=== PATIENT | male | born 1970 | race Caucasian/White ===

== ENCOUNTER 2020-12-09 19:29 | Inpatient (IN) | payer OTHER ==
[~2020-12-09] VITALS: Ht 182.9 cm; Wt 82.0 kg
[2020-12-09 20:23] VITALS: Ht 182.9 cm; Wt 82.0 kg
[2020-12-09 20:34] LABS: BASOPHIL % 0.5 % (0.2-1.5)
[2020-12-09 21:00] LABS: PLATELET COUNT 466 x10^3mcL (152-348); RED CELL DISTRIBUTION WIDTH 15.4 % (12.1-16.2)
[2020-12-10] VITALS (8 sets, daily range): BP systolic 70–141; BP diastolic 44–104
[2020-12-10] MEDS ORDERED: ZESTORETIC1 TA1 PO (01:13)
[2020-12-10] MEDS ORDERED: JARDIANCE25 MG PO (01:14)
[2020-12-10] MEDS ORDERED: ASPIRIN CHILDRE81 MG PO (01:15)
[2020-12-10] MEDS ORDERED: NIACOR500 MG PO (01:15)
[2020-12-10] MEDS ORDERED: FENOFIBRATE MIC43 MG PO (01:15)
[2020-12-10] MEDS ORDERED: TOPROL XL50 MG PO (01:16)
[2020-12-10] MEDS ORDERED: PAXIL20 M1 PO (01:16)
[2020-12-10] MEDS ORDERED: XYOSTED100 MG/0.5 SQ (01:18)
[2020-12-10] MEDS ORDERED: VITAMIN D21250 MCG PO (01:18)
[2020-12-10 09:36] LABS: PLATELET COUNT 302 x10^3mcL (152-348)
[2020-12-10 09:37] LABS: RED CELL DISTRIBUTION WIDTH 15.9 % (12.1-16.2)
[2020-12-10 10:11] LABS: CARBON DIOXIDE 18.5 mmol/L (21-32); CHLORIDE SERUM 98 mmol/L (98-107); MAGNESIUM 1.5 mg/dL (1.8-2.4); SODIUM SERUM 131 mmol/L (136-145)
[2020-12-10 10:29] LABS: GFR1 16 mL/min
[2020-12-10 10:33] LABS: CREATININE SERUM 4.2 mg/dL (0.7-1.3); GLUCOSE SERUM 576 mg/dL (74-106); PHOSPHOROUS 0.9 mg/dL (2.5-4.9)
[2020-12-10 10:34] LABS: POTASSIUM SERUM 4.5 mmol/L (3.5-5.1)
[2020-12-10 11:34] LABS: CHOLESTEROL 243 mg/dL (<200); CHOLESTEROL/HDL RATIO 15.2; HDL CHOLESTEROL 16 mg/dL (40-60); TRIGLYCERIDES 1684 mg/dL (<150)
[2020-12-10 12:06] LABS: BAND NEUTROPHIL 2 % (0-10); MONOCYTE 7 % (0-7); PLATELET MORPHOLOGY PLATELETS NORMAL; SEGMENTED NEUTROPHILS 84 % (37-75); rbc morphology (normal/abnorm) NORMAL (NORMAL)
[2020-12-10 12:57] LABS: CK-MB 5.6 ng/mL (0-3.6)
[2020-12-10 17:40] LABS: CARBON DIOXIDE 20.4 mmol/L (21-32); CHLORIDE SERUM 98 mmol/L (98-107); GLUCOSE SERUM 445 mg/dL (74-106); PHOSPHOROUS 2.8 mg/dL (2.5-4.9); POTASSIUM SERUM 3.9 mmol/L (3.5-5.1); SODIUM SERUM 132 mmol/L (136-145)
[2020-12-10 17:46] LABS: GFR1 12 mL/min
[2020-12-10 17:47] LABS: CREATININE SERUM 5.3 mg/dL (0.7-1.3)
[2020-12-10 17:55] LABS: T3 TOTAL 0.76 ng/mL
[2020-12-10 18:47] LABS: FREE T4 1.31 ng/dL (0.76-1.46); FREE THYROXINE INDEX 2.7 ug/dL (1.4-4.5); T4(THYROXINE) 6.7 ug/dL (4.7-13.3)
[2020-12-11] VITALS (9 sets, daily range): BP systolic 94–128; BP diastolic 51–78
[2020-12-11 07:39] LABS: PLATELET COUNT 232 x10^3mcL (152-348)
[2020-12-11 07:49] LABS: RED CELL DISTRIBUTION WIDTH 15.7 % (12.1-16.2)
[2020-12-11 08:28] LABS: CARBON DIOXIDE 17.2 mmol/L (21-32); MAGNESIUM 1.4 mg/dL (1.8-2.4); PHOSPHOROUS 4.7 mg/dL (2.5-4.9); POTASSIUM SERUM 3.6 mmol/L (3.5-5.1)
[2020-12-11 08:42] LABS: CREATININE SERUM 6.7 mg/dL (0.7-1.3)
[2020-12-11 09:54] LABS: microscopic required? YES; urine erythrocyte 3+ (NEGATIVE)
[2020-12-11 11:42] LABS: BAND NEUTROPHIL 35 % (0-10); METAMYELOCTE 1 % (0-2); MONOCYTE 6 % (0-7); SEGMENTED NEUTROPHILS 53 % (37-75)
[2020-12-11 11:43] LABS: PLATELET MORPHOLOGY PLATELETS NORMAL; rbc morphology (normal/abnorm) NORMAL (NORMAL)
[2020-12-11 13:37] LABS: CALCIUM 4.6 mg/dL (8.5-10.1)
[2020-12-12 05:22] VITALS: BP 104/53
[2020-12-12 06:23] LABS: BILIRUBIN TOTAL 0.81 mg/dL (0.20-1.00); CARBON DIOXIDE 18.3 mmol/L (21-32); PHOSPHOROUS 6.3 mg/dL (2.5-4.9); TOTAL PROTEIN, SERUM 6.4 g/dL (6.4-8.2)
[2020-12-12 07:11] LABS: MAGNESIUM 2.2 mg/dL (1.8-2.4); POTASSIUM SERUM 3.5 mmol/L (3.5-5.1)
[2020-12-12 07:20] LABS: BASOPHIL % 0.4 % (0.2-1.5); PLATELET COUNT 215 x10^3mcL (152-348)
[2020-12-12 07:32] LABS: ALBUMIN 2.4 g/dL (3.4-5.0)
[2020-12-12 07:34] LABS: CALCIUM 4.8 mg/dL (8.5-10.1)
[2020-12-12 07:35] LABS: CREATININE SERUM 8.6 mg/dL (0.7-1.3)
[2020-12-12 08:20] LABS: CHOLESTEROL 264 mg/dL (<200); CHOLESTEROL/HDL RATIO 18.9; HDL CHOLESTEROL 14 mg/dL (40-60); TRIGLYCERIDES 1231 mg/dL (<150)
[2020-12-12 08:31] VITALS: BP 141/60
[2020-12-12 12:22] VITALS: BP 132/2; BP 132/72
[2020-12-12 17:24] VITALS: BP 135/66
[2020-12-12 23:47] VITALS: BP 129/73
[2020-12-13 00:17] VITALS: BP 129/63
[2020-12-13 05:43] LABS: BASOPHIL % 0.4 % (0.2-1.5); PLATELET COUNT 239 x10^3mcL (152-348)
[2020-12-13 05:57] LABS: ALKALINE PHOSPHATASE 40 U/L (46-116); ALT/SGPT 29 U/L (16-63); AST/SGOT 36 U/L (15-37); BILIRUBIN TOTAL 0.9 mg/dL (0.20-1.00); CARBON DIOXIDE 19.3 mmol/L (21-32); CHLORIDE SERUM 95 mmol/L (98-107); GLUCOSE SERUM 166 mg/dL (74-106); LIPASE 647 IU/L (73-393); MAGNESIUM 1.9 mg/dL (1.8-2.4); PHOSPHOROUS 6.5 mg/dL (2.5-4.9); POTASSIUM SERUM 3.2 mmol/L (3.5-5.1); SODIUM SERUM 132 mmol/L (136-145); TOTAL PROTEIN, SERUM 6.4 g/dL (6.4-8.2)
[2020-12-13 06:11] LABS: RED CELL DISTRIBUTION WIDTH 15.9 % (12.1-16.2)
[2020-12-13 07:01] LABS: ALBUMIN 2.2 g/dL (3.4-5.0); GFR1 7 mL/min
[2020-12-13 07:03] LABS: CALCIUM 5.4 mg/dL (8.5-10.1); CHOLESTEROL 234 mg/dL (<200); CHOLESTEROL/HDL RATIO 11.1; HDL CHOLESTEROL 21 mg/dL (40-60); TRIGLYCERIDES 817 mg/dL (<150)
[2020-12-13 08:00] VITALS: BP 147/64
[2020-12-13 12:00] VITALS: BP 129/60
[2020-12-13 16:00] VITALS: BP 165/87
[2020-12-14] VITALS (7 sets, daily range): BP systolic 137–162; BP diastolic 80–97
[2020-12-14 06:40] LABS: BASOPHIL % 0.5 % (0.2-1.5); PLATELET COUNT 269 x10^3mcL (152-348)
[2020-12-14 07:07] LABS: BILIRUBIN TOTAL 0.8 mg/dL (0.20-1.00); CARBON DIOXIDE 23.3 mmol/L (21-32); POTASSIUM SERUM 3.2 mmol/L (3.5-5.1); TOTAL PROTEIN, SERUM 6.4 g/dL (6.4-8.2)
[2020-12-14 07:11] LABS: RED CELL DISTRIBUTION WIDTH 16.3 % (12.1-16.2)
[2020-12-14 07:34] LABS: CHOLESTEROL 208 mg/dL (<200); CHOLESTEROL/HDL RATIO 10.9; HDL CHOLESTEROL 19 mg/dL (40-60); TRIGLYCERIDES 559 mg/dL (<150)
[2020-12-14 07:35] LABS: ALBUMIN 2.1 g/dL (3.4-5.0)
[2020-12-14 07:37] LABS: CALCIUM 5.8 mg/dL (8.5-10.1); CREATININE SERUM 9.1 mg/dL (0.7-1.3)
[2020-12-15 01:06] VITALS: BP 129/76
[2020-12-15 03:19] VITALS: BP 154/81
[2020-12-15 06:44] LABS: BASOPHIL % 0.1 % (0.2-1.5); PLATELET COUNT 254 x10^3mcL (152-348)
[2020-12-15 06:49] LABS: RED CELL DISTRIBUTION WIDTH 16.9 % (12.1-16.2)
[2020-12-15 07:34] LABS: BILIRUBIN TOTAL 0.66 mg/dL (0.20-1.00); CALCIUM 6.3 mg/dL (8.5-10.1); CARBON DIOXIDE 21.2 mmol/L (21-32); POTASSIUM SERUM 3.4 mmol/L (3.5-5.1); TOTAL PROTEIN, SERUM 6.6 g/dL (6.4-8.2)
[2020-12-15 07:45] LABS: ALBUMIN 1.9 g/dL (3.4-5.0)
[2020-12-15 07:46] LABS: CREATININE SERUM 10.8 mg/dL (0.7-1.3)
[2020-12-15 07:56] LABS: CHOLESTEROL/HDL RATIO 12.2
[2020-12-15 21:00] VITALS: BP 119/71
[2020-12-16 00:15] VITALS: BP 104/55
[2020-12-16 04:34] VITALS: BP 141/90
[2020-12-16 06:13] LABS: BASOPHIL % 0.3 % (0.2-1.5); PLATELET COUNT 287 x10^3mcL (152-348)
[2020-12-16 06:17] LABS: RED CELL DISTRIBUTION WIDTH 16.4 % (12.1-16.2)
[2020-12-16 06:32] LABS: BILIRUBIN TOTAL 0.74 mg/dL (0.20-1.00); POTASSIUM SERUM 3.2 mmol/L (3.5-5.1); TOTAL PROTEIN, SERUM 6.5 g/dL (6.4-8.2)
[2020-12-16 06:48] LABS: ALBUMIN 1.9 g/dL (3.4-5.0); CREATININE SERUM 10.8 mg/dL (0.7-1.3)
[2020-12-16 17:00] VITALS: BP 117/63
[2020-12-16 20:53] VITALS: BP 105/73
[2020-12-17 05:07] VITALS: BP 110/72
[2020-12-17 06:47] LABS: BASOPHIL % 0.1 % (0.2-1.5); PLATELET COUNT 246 x10^3mcL (152-348)
[2020-12-17 07:08] LABS: RED CELL DISTRIBUTION WIDTH 16.4 % (12.1-16.2)
[2020-12-17 07:22] LABS: BILIRUBIN TOTAL 0.6 mg/dL (0.20-1.00); CALCIUM 7.5 mg/dL (8.5-10.1); CARBON DIOXIDE 21.7 mmol/L (21-32); POTASSIUM SERUM 3.4 mmol/L (3.5-5.1); TOTAL PROTEIN, SERUM 6.2 g/dL (6.4-8.2)
[2020-12-17 07:28] LABS: ALBUMIN 1.7 g/dL (3.4-5.0)
[2020-12-17 07:31] VITALS: BP 143/64
[2020-12-17 11:43] VITALS: BP 118/64
[2020-12-17 12:35] LABS: microscopic required? YES; urine erythrocyte 3+ (NEGATIVE)
[2020-12-17 21:09] VITALS: BP 155/66
[2020-12-18 06:12] VITALS: BP 125/86
[2020-12-18 06:31] LABS: BASOPHIL % 0.1 % (0.2-1.5); PLATELET COUNT 268 x10^3mcL (152-348)
[2020-12-18 07:00] LABS: RED CELL DISTRIBUTION WIDTH 16.2 % (12.1-16.2)
[2020-12-18 07:40] LABS: BILIRUBIN TOTAL 0.5 mg/dL (0.20-1.00); CALCIUM 7.9 mg/dL (8.5-10.1); CARBON DIOXIDE 20.6 mmol/L (21-32); POTASSIUM SERUM 3.3 mmol/L (3.5-5.1); TOTAL PROTEIN, SERUM 6.4 g/dL (6.4-8.2)
[2020-12-18 07:43] LABS: ALBUMIN 1.7 g/dL (3.4-5.0)
[2020-12-18 07:44] LABS: CREATININE SERUM 9.3 mg/dL (0.7-1.3)
[2020-12-18 08:14] VITALS: BP 136/83
[2020-12-18 12:17] VITALS: BP 124/64
[2020-12-18 16:24] VITALS: BP 129/83
[2020-12-18 20:00] VITALS: BP 148/87
[2020-12-19 06:01] VITALS: BP 122/86
[2020-12-19 08:19] VITALS: BP 111/75
[2020-12-19 11:15] LABS: PLATELET COUNT 289 x10^3mcL (152-348)
[2020-12-19 11:27] LABS: RED CELL DISTRIBUTION WIDTH 16.4 % (12.1-16.2)
[2020-12-19 11:36] LABS: CARBON DIOXIDE 18.2 mmol/L (21-32); MAGNESIUM 1.7 mg/dL (1.8-2.4); PHOSPHOROUS 5.1 mg/dL (2.5-4.9)
[2020-12-19 11:46] LABS: CREATININE SERUM 6.7 mg/dL (0.7-1.3); POTASSIUM SERUM 2.6 mmol/L (3.5-5.1)
[2020-12-19 12:00] LABS: BAND NEUTROPHIL 5 % (0-10); BASOPHIL 0 % (0-2); MONOCYTE 3 % (0-7); SEGMENTED NEUTROPHILS 84 % (37-75)
[2020-12-19 12:01] LABS: rbc morphology (normal/abnorm) ABNORMAL (NORMAL)
[2020-12-19 12:04] VITALS: BP 122/73
[2020-12-19 16:42] VITALS: BP 129/79
[2020-12-19 21:24] VITALS: BP 128/85
[2020-12-20 05:54] VITALS: BP 118/74
[2020-12-20 07:28] LABS: PLATELET COUNT 404 x10^3mcL (152-348); RED CELL DISTRIBUTION WIDTH 15.8 % (12.1-16.2)
[2020-12-20 07:37] LABS: CALCIUM 8.4 mg/dL (8.5-10.1); MAGNESIUM 1.7 mg/dL (1.8-2.4); PHOSPHOROUS 5.4 mg/dL (2.5-4.9)
[2020-12-20 08:02] LABS: CREATININE SERUM 7.4 mg/dL (0.7-1.3)
[2020-12-20 08:11] VITALS: BP 129/67
[2020-12-20 13:56] LABS: BAND NEUTROPHIL 7 % (0-10); MONOCYTE 7 % (0-7); MYELOCYTE 1 % (0-2); SEGMENTED NEUTROPHILS 80 % (37-75)
[2020-12-20 13:57] LABS: rbc morphology (normal/abnorm) ABNORMAL (NORMAL)
[2020-12-20 13:58] LABS: PLATELET MORPHOLOGY LARGE PLATELET SEEN
== END 2020-12-20 11:00 | disposition home or self-care (01) | DRG 314 ==
LOC: ED 19:29 → DU 23:33 → IC 12-12 16:35 → DU 12-12 16:36 → IC 12-12 17:25 → DU 12-12 17:26 → IC 12-12 18:03 → DU 12-16 15:30 → IC 12-16 15:31 → DU 12-16 17:28
PROVIDERS: Family Medicine; Internal Medicine Gastroenterology; Specialist; ADMIT Internal Medicine; ATTEND Internal Medicine
PROC: 02PYX3Z Removal of Infusion Device from Great Vessel, External Approach (ICD-10-PCS; principal; 2020-12-12)
PROC: 02HV33Z Insertion of Infusion Device into Superior Vena Cava, Percutaneous Approach (ICD-10-PCS; 2020-12-12)
PROC: B548ZZA Ultrasonography of Superior Vena Cava, Guidance (ICD-10-PCS; 2020-12-12)
PROC: 5A1D70Z Performance of Urinary Filtration, Intermittent, Less than 6 Hours Per Day (ICD-10-PCS; 2020-12-12)
PROC: 5A1D70Z Performance of Urinary Filtration, Intermittent, Less than 6 Hours Per Day (ICD-10-PCS; 2020-12-13)
PROC: 5A1D70Z Performance of Urinary Filtration, Intermittent, Less than 6 Hours Per Day (ICD-10-PCS; 2020-12-14)
PROC: 5A1D70Z Performance of Urinary Filtration, Intermittent, Less than 6 Hours Per Day (ICD-10-PCS; 2020-12-15)
PROC: 5A1D70Z Performance of Urinary Filtration, Intermittent, Less than 6 Hours Per Day (ICD-10-PCS; 2020-12-16)
PROC: 5A1D70Z Performance of Urinary Filtration, Intermittent, Less than 6 Hours Per Day (ICD-10-PCS; 2020-12-17)
PROC: 5A1D70Z Performance of Urinary Filtration, Intermittent, Less than 6 Hours Per Day (ICD-10-PCS; 2020-12-18)
PROC: 5A1D70Z Performance of Urinary Filtration, Intermittent, Less than 6 Hours Per Day (ICD-10-PCS; 2020-12-19)
DX: T82.898A Other specified complication of vascular prosthetic devices, implants and grafts, initial encounter (principal); K85.20 Alcohol induced acute pancreatitis without necrosis or infection; N17.0 Acute kidney failure with tubular necrosis; J96.01 Acute respiratory failure with hypoxia; R65.10 Systemic inflammatory response syndrome (SIRS) of non-infectious origin without acute organ dysfunction; E87.1 Hypo-osmolality and hyponatremia; K56.0 Paralytic ileus; Z20.822 Contact with and (suspected) exposure to COVID-19; E78.1 Pure hyperglyceridemia; J44.9 Chronic obstructive pulmonary disease, unspecified; E86.0 Dehydration; F10.20 Alcohol dependence, uncomplicated; Y90.9 Presence of alcohol in blood, level not specified; E11.9 Type 2 diabetes mellitus without complications; Z79.899 Other long term (current) drug therapy; Z79.82 Long term (current) use of aspirin; D47.3 Essential (hemorrhagic) thrombocythemia; D75.1 Secondary polycythemia; E11.65 Type 2 diabetes mellitus with hyperglycemia; R00.0 Tachycardia, unspecified; E83.39 Other disorders of phosphorus metabolism; Y83.8 Other surgical procedures as the cause of abnormal reaction of the patient, or of later complication, without mention of misadventure at the time of the procedure; Y92.89 Other specified places as the place of occurrence of the external cause
CPT/HCPCS: 36600; 82962; 84439; 86580; 97110-GP; 97116-GP; 97530-GP; A4628; C9113; G0378; G0480; J0360; J0610; J1170; J1200; J1364; J1642; J1644; J1815; J1940; J2060; J2185; J2270; J2405; J2543; J3010; J3475; J3480; J3490; J7030; J7042; J7120; J8597; Q9966; Q9967; U0003